=== PATIENT | female | born 1935 | race Caucasian/White ===

== ENCOUNTER 2016-07-30 09:38 | Inpatient (IN) | payer MEDICARE, OTHER ==
[~2016-07-30] VITALS: Ht 157.5 cm; Wt 58.0 kg
[~2016-07-30 09:38] MED LIST: ACTONEL PO; ACTONEL150 MG OR; ALEVE220 M1 PO; ASPIRIN81 MG PO; ATIVAN1 M1 OR; AVALIDE1 TA2 OR; CALCIUM 1200 OR; CALCIUM 6001 TAB PO; CLARITIN10 M1 PO; CLONIDINE0.1 MG PO; CLONIDINE0.2 MG OR; CLONIDINE0.2 MG PO; CRESTOR20 MG OR; CRESTOR20 MG PO; CYMBALTA60 MG OR; DICLOFENAC SODIUM3 % TOP; DIOVAN HCT320 MG/25 OR; FLUARIX QUADRIV1 IN1 IM; FLUTICASONE50 MCG; FLUZONE SPLT1 M1 IM; HYDROCO/APAP1 TA9 PO; LASIX 20 MG20 MG/TAB PO; LASIX20 MG OR; LORTAB 7.57.5 MG OR; LORTAB5 OR; MAREPA1000 MG OR; MECLIZINE25 MG PO; NIFEDIPINE60 MG PO; NITRO-DUR0.4 MG/HR TD; NORCO1 TA1 PO; NORVASC5 MG OR; PRILOSEC20 MG OR; PRILOSEC20 MG/CAP PO; PROTONIX40 M2 PO; ROXICODONE5 MG OR; SKELAXIN800 MG OR; SULFACET SOD10 % OP; TAMOXIFEN PO; TENIVAC1 ML IM; TENORMIN100 MG PO; TRAMADOL HCL50 MG PO; VITAMIN D-32000 UNIT OR; VITAMIN D-3400 UNIT PO; VITAMIN D2000 UNI2 PO; WOMEN'S ONE PO; [UNRECOGNIZED DRUG - OTHER] OP; catapres PO
[2016-07-30] MEDS ORDERED: REMERON15 MG PO (09:43)
[2016-07-30] MEDS ORDERED: TENORMIN50 MG PO (09:45)
[2016-07-30] MEDS ORDERED: BAYER ASPIRIN E81 MG PO (09:46)
[2016-07-30] MEDS ORDERED: B-121000 MC4 PO (09:47)
[2016-07-30] MEDS ORDERED: D31000 UNI1 PO (09:48)
[2016-07-30] MEDS ORDERED: FISH OIL1000 MG PO (09:49)
[2016-07-30] MEDS ORDERED: ULTRAM50 M1 PO (11:59)
[2016-07-30] MEDS ORDERED: FLEXERIL PO (11:59)
[2016-07-30 12:59] LABS: HEMOGLOBIN 11.7 g/dl (12.0-16.0); IMMATURE GRANULOCYTES 0.4 % (0.0-1.0); MEAN CELL VOLUME 95.5 fL CALC (80.0-100.0); MEAN CORPUSCULAR HGB CONC 32.5 g/L CALC (32.0-36.0); NEUT# 11.2 thou/uL (2.00-7.15); RED BLOOD COUNT 3.77 mill/uL (4.20-5.60); RED CELL DISTRI WIDTH 12.8 % (11.5-15.5)
[2016-07-30 13:27] LABS: ALKALINE PHOSPHATASE 71 u/l (38-126); ANION GAP 17 (6-22 (CALC)); BILIRUBIN, TOTAL 1.8 mg/dL (0.0-1.4); BUN 23 mg/dL (8-23); BUN/CREATININE RATIO 23 (12-20 (CALC)); CALCIUM 9.6 mg/dL (8.4-10.2); CARBON DIOXIDE 27 mmol/l (22-30); CHLORIDE 103 mmol/l (95-108); GFR 53 ML/MIN (>=60 (CALC)); GFR FOR AFR.AMER. > 60 ML/MIN (>=60 (CALC)); GLUCOSE 145 mg/dL (82-115); POTASSIUM 4.1 mmol/l (3.5-5.1); SGOT/AST 25 u/l (9-36); SGPT/ALT 21 u/l (11-66); SODIUM 142 mmol/l (137-146); TOTAL PROTEIN 7.5 g/dL (6.3-8.2)
[2016-07-30 13:34] LABS: MYOGLOBIN 71 ng/mL (0 - 62)
[2016-07-30 13:46] LABS: URINE BILIRUBIN - DIPSTICK NEGATIVE (NEGATIVE); URINE BLOOD DIPSTICK SMALL (NEGATIVE); URINE COLOR YELLOW; URINE GLUCOSE - DIPSTICK NEGATIVE (NEGATIVE); URINE KETONE NEGATIVE (NEGATIVE); URINE NITRITE - DIPSTICK NEGATIVE (Negative); URINE PROTEIN - DIPSTICK NEGATIVE (NEG-TRACE); URINE UROBILINOGEN - DIPSTICK 0.2 E.U./dL (0.2)
[2016-07-30 13:47] LABS: URINE BACTERIA FEW hpf; URINE CLARITY HAZY; URINE EPITHELIAL CELLS FEW EPI/hpf (0-FEW); URINE LEUK ESTERASE SMALL (NEGATIVE)
[2016-07-30 15:20] VITALS: BP 138/65
[2016-07-30 15:56] VITALS: BP 130/73
[2016-07-30 19:15] VITALS: BP 121/71
[2016-07-30 19:45] VITALS: BP 101/62
[2016-07-31 04:55] VITALS: BP 124/63
[2016-07-31 06:44] LABS: HEMATOCRIT 35.3 % (37.0-47.0); HEMOGLOBIN 11.4 g/dl (12.0-16.0); IMMATURE GRANULOCYTES 0.4 % (0.0-1.0); MEAN CELL VOLUME 96.4 fL CALC (80.0-100.0); MEAN CORPUSCULAR HGB 31.1 pG CALC (26.0-32.0); MEAN CORPUSCULAR HGB CONC 32.3 g/L CALC (32.0-36.0); NEUT# 5.6 thou/uL (2.00-7.15); RED BLOOD COUNT 3.66 mill/uL (4.20-5.60); RED CELL DISTRI WIDTH 12.9 % (11.5-15.5)
[2016-07-31 06:58] LABS: ANION GAP 14 (6-22 (CALC)); BUN 24 mg/dL (8-23); BUN/CREATININE RATIO 24 (12-20 (CALC)); CALCIUM 8.9 mg/dL (8.4-10.2); CARBON DIOXIDE 26 mmol/l (22-30); CHLORIDE 107 mmol/l (95-108); GFR 53 ML/MIN (>=60 (CALC)); GFR FOR AFR.AMER. > 60 ML/MIN (>=60 (CALC)); GLUCOSE 74 mg/dL (82-115); POTASSIUM 3.9 mmol/l (3.5-5.1); SODIUM 144 mmol/l (137-146)
[2016-07-31 07:40] VITALS: BP 121/81
[2016-07-31 07:42] VITALS: BP 32/61
[2016-07-31 11:29] VITALS: BP 144/63
[2016-07-31 15:31] VITALS: BP 131/68
[2016-07-31 19:42] VITALS: BP 132/61
[2016-08-01 00:40] VITALS: BP 120/56
[2016-08-01 04:05] VITALS: BP 138/76
[2016-08-01 09:03] VITALS: BP 133/71
[2016-08-01 11:29] VITALS: BP 144/62
[2016-08-01 15:30] VITALS: BP 121/61
[2016-08-01 19:40] VITALS: BP 144/77
[2016-08-02 00:06] VITALS: BP 127/78
[2016-08-02 04:30] VITALS: BP 140/62
[2016-08-02 09:07] VITALS: BP 137/80
[2016-08-02] MEDS ORDERED: SERTRALINE HCL50 MG PO (12:24)
[2016-08-02 13:13] VITALS: BP 144/89
[2016-08-02 16:00] VITALS: BP 138/79
== END 2016-08-02 17:03 | DRG 884 ==
LOC: ENPENDDIS → EDPENDDISTM → EDPENDDISDT → ED 09:38 → ED-I 13:50 → ED 14:29 → MS2 14:30
PROVIDERS: Emergency Medicine; ADMIT Internal Medicine; ATTEND Internal Medicine
PROC: 0T9B70Z Drainage of Bladder with Drainage Device, Via Natural or Artificial Opening (ICD-10-PCS; principal; 2016-07-30)
DX: F03.90 Unspecified dementia, unspecified severity, without behavioral disturbance, psychotic disturbance, mood disturbance, and anxiety (principal); R00.1 Bradycardia, unspecified; I10 Essential (primary) hypertension; M62.81 Muscle weakness (generalized); R26.89 Other abnormalities of gait and mobility; E78.5 Hyperlipidemia, unspecified; K21.9 Gastro-esophageal reflux disease without esophagitis; M25.461 Effusion, right knee; M17.11 Unilateral primary osteoarthritis, right knee; F32.9 Major depressive disorder, single episode, unspecified; T44.7X5A Adverse effect of beta-adrenoreceptor antagonists, initial encounter; Z85.3 Personal history of malignant neoplasm of breast; Z87.891 Personal history of nicotine dependence; Z91.81 History of falling

== ENCOUNTER 2016-10-06 09:45 | Emergency (ER) | payer MEDICARE, OTHER ==
[~2016-10-06] VITALS: Ht 160 cm; Wt 61.3 kg
[~2016-10-06 09:45] MED LIST changes: +B-121000 MC4 PO; +BAYER ASPIRIN E81 MG PO; +D31000 UNI1 PO; +FISH OIL1000 MG PO; +FLEXERIL PO; +KEFLEX500 M1 PO; +REMERON15 MG PO; +SERTRALINE HCL50 MG PO; +TENORMIN50 MG PO; +ULTRAM50 M1 PO
[2016-10-06 10:18] LABS: HEMATOCRIT 37.6 % (37.0-47.0); HEMOGLOBIN 12.2 g/dl (12.0-16.0); IMMATURE GRANULOCYTES 0.5 % (0.0-1.0); MEAN CELL VOLUME 91.3 fL CALC (80.0-100.0); MEAN CORPUSCULAR HGB 29.6 pG CALC (26.0-32.0); MEAN CORPUSCULAR HGB CONC 32.4 g/L CALC (32.0-36.0); NEUT# 10.27 thou/uL (2.00-7.15); RED BLOOD COUNT 4.12 mill/uL (4.20-5.60); RED CELL DISTRI WIDTH 13.3 % (11.5-15.5)
[2016-10-06] MEDS ORDERED: SERTRALINE50 MG PO (10:18)
[2016-10-06 10:32] LABS: ALBUMIN 3.9 g/dL (3.2-5.0); ALKALINE PHOSPHATASE 107 u/l (38-126); ANION GAP 17 (6-22 (CALC)); BILIRUBIN, TOTAL 1.6 mg/dL (0.0-1.4); BUN 13 mg/dL (8-23); BUN/CREATININE RATIO 19 (12-20 (CALC)); CALCIUM 9.4 mg/dL (8.4-10.2); CARBON DIOXIDE 24 mmol/l (22-30); CHLORIDE 104 mmol/l (95-108); CREATININE 0.7 mg/dL (0.5-1.0); GFR > 60 ML/MIN (>=60 (CALC)); GFR FOR AFR.AMER. > 60 ML/MIN (>=60 (CALC)); GLUCOSE 131 mg/dL (82-115); POTASSIUM 3.6 mmol/l (3.5-5.1); SGOT/AST 29 u/l (9-36); SGPT/ALT 24 u/l (11-66); SODIUM 141 mmol/l (137-146); TOTAL PROTEIN 7.1 g/dL (6.3-8.2)
[2016-10-06 10:45] LABS: MYOGLOBIN 260 ng/mL (0 - 62)
[2016-10-06 12:10] LABS: URINE BILIRUBIN - DIPSTICK NEGATIVE (NEGATIVE); URINE BLOOD DIPSTICK SMALL (NEGATIVE); URINE CLARITY CLEAR; URINE COLOR YELLOW; URINE GLUCOSE - DIPSTICK NEGATIVE (NEGATIVE); URINE KETONE NEGATIVE (NEGATIVE); URINE LEUK ESTERASE NEGATIVE (NEGATIVE); URINE NITRITE - DIPSTICK NEGATIVE (Negative); URINE PROTEIN - DIPSTICK NEGATIVE (NEG-TRACE); URINE UROBILINOGEN - DIPSTICK 0.2 E.U./dL (0.2)
[2016-10-06 12:39] LABS: URINE WBC 0-2 WBC/hpf (0-5)
[2016-10-06 12:40] LABS: URINE BACTERIA FEW hpf; URINE HYALINE CAST FEW lpf (NONE-RARE); URINE SQUAMOUS EPITHELIAL CELL FEW EPI/hpf (0-FEW)
[2016-10-06] MEDS ORDERED: EC-NAPROSYN500 MG PO (13:02)
[2016-10-06 14:02] VITALS: BP 173/78
== END 2016-10-06 14:02 | disposition home or self-care (01) ==
LOC: ED 09:45
PROVIDERS: Emergency Medicine
DX: S70.02XA Contusion of left hip, initial encounter (principal); W06.XXXA Fall from bed, initial encounter; Y93.89 Activity, other specified; Y92.003 Bedroom of unspecified non-institutional (private) residence as the place of occurrence of the external cause; I10 Essential (primary) hypertension; M79.7 Fibromyalgia; F03.90 Unspecified dementia, unspecified severity, without behavioral disturbance, psychotic disturbance, mood disturbance, and anxiety

== ENCOUNTER 2017-06-16 15:19 | Emergency (ER) | payer MEDICARE, OTHER ==
[~2017-06-16] VITALS: Ht 160 cm; Wt 68.0 kg
[~2017-06-16 15:19] MED LIST changes: +EC-NAPROSYN500 MG PO; +SERTRALINE50 MG PO
[2017-06-16] MEDS ORDERED: AMLODIPINE BESYL5 MG PO (15:44)
[2017-06-16] MEDS ORDERED: SINEMET 10/1001 TAB PO (15:44)
[2017-06-16] MEDS ORDERED: FUROSEMIDE20 MG PO (15:45)
[2017-06-16 17:33] LABS: HEMATOCRIT 43.4 % (37.0-47.0); IMMATURE GRANULOCYTES 0.6 % (0.0-1.0); MEAN CELL VOLUME 91.4 fL CALC (80.0-100.0); MEAN CORPUSCULAR HGB 29.9 pG CALC (26.0-32.0); MEAN CORPUSCULAR HGB CONC 32.7 g/L CALC (32.0-36.0); NEUT# 8.94 thou/uL (2.00-7.15); RED BLOOD COUNT 4.75 mill/uL (4.20-5.60); RED CELL DISTRI WIDTH 13.5 % (11.5-15.5)
[2017-06-16 17:34] LABS: URINE BILIRUBIN - DIPSTICK NEGATIVE (NEGATIVE); URINE BLOOD DIPSTICK LARGE (NEGATIVE); URINE COLOR YELLOW; URINE GLUCOSE - DIPSTICK NEGATIVE (NEGATIVE); URINE KETONE NEGATIVE (NEGATIVE); URINE NITRITE - DIPSTICK NEGATIVE (Negative); URINE PROTEIN - DIPSTICK TRACE mg/dL (NEG-TRACE); URINE SPECIFIC GRAVITY 1.015; URINE UROBILINOGEN - DIPSTICK 0.2 E.U./dL (0.2)
[2017-06-16 17:36] LABS: URINE CLARITY HAZY; URINE LEUK ESTERASE SMALL (NEGATIVE)
[2017-06-16 17:37] LABS: HEMOGLOBIN 14.2 g/dl (12.0-16.0)
[2017-06-16 17:49] LABS: URINE SQUAMOUS EPITHELIAL CELL FEW EPI/hpf (0-FEW)
[2017-06-16 17:59] LABS: ANION GAP 22 (6-22 (CALC)); BUN 15 mg/dL (8-23); BUN/CREATININE RATIO 17 (12-20 (CALC)); CARBON DIOXIDE 24 mmol/l (22-30); CHLORIDE 102 mmol/l (95-108); CREATININE 0.9 mg/dL (0.5-1.0); GFR 60 ML/MIN (>=60 (CALC)); GFR FOR AFR.AMER. > 60 ML/MIN (>=60 (CALC)); POTASSIUM 3.7 mmol/l (3.5-5.1); SODIUM 144 mmol/l (137-146)
[2017-06-16 19:20] VITALS: BP 151/84
== END 2017-06-16 19:20 ==
LOC: ED 15:19
PROVIDERS: Family Medicine
DX: S32.502A Unspecified fracture of left pubis, initial encounter for closed fracture (principal); S22.089A Unspecified fracture of T11-T12 vertebra, initial encounter for closed fracture; W07.XXXA Fall from chair, initial encounter

== ENCOUNTER 2017-12-03 11:13 | Emergency (ER) | payer MEDICARE, OTHER ==
[~2017-12-03] VITALS: Ht 160 cm; Wt 66.0 kg
[~2017-12-03 11:13] MED LIST changes: +AMLODIPINE BESYL5 MG PO; +FUROSEMIDE20 MG PO; +SINEMET 10/1001 TAB PO
[2017-12-03 11:48] LABS: HEMATOCRIT 40.6 % (37.0-47.0); HEMOGLOBIN 13.2 g/dl (12.0-16.0); IMMATURE GRANULOCYTES 0.4 % (0.0-5.0); MEAN CELL VOLUME 92.7 fL CALC (80.0-100.0); MEAN CORPUSCULAR HGB 30.1 pG CALC (26.0-32.0); MEAN CORPUSCULAR HGB CONC 32.5 g/L CALC (32.0-36.0); NEUT# 12.58 thou/uL (2.00-7.15); RED BLOOD COUNT 4.38 mill/uL (4.20-5.60); RED CELL DISTRI WIDTH 13.6 % (11.5-15.5)
[2017-12-03 11:54] LABS: ALBUMIN 3.7 g/dL (3.2-5.0); BILIRUBIN, TOTAL 1.2 mg/dL (0.0-1.4); CREATININE 1.2 mg/dL (0.5-1.0); POTASSIUM 3.2 mmol/l (3.5-5.1); TOTAL PROTEIN 6.9 g/dL (6.3-8.2)
[2017-12-03 12:58] LABS: URINE BLOOD DIPSTICK MODERATE (NEGATIVE); URINE COLOR YELLOW; URINE GLUCOSE - DIPSTICK NEGATIVE (NEGATIVE); URINE KETONE TRACE mg/dL (NEGATIVE); URINE NITRITE - DIPSTICK NEGATIVE (Negative); URINE PH 5.5 (4.5-8.0); URINE PROTEIN - DIPSTICK 100 mg/dL (NEG-TRACE); URINE SPECIFIC GRAVITY 1.025; URINE UROBILINOGEN - DIPSTICK 0.2 E.U./dL (0.2)
[2017-12-03 13:00] LABS: URINE BILIRUBIN - DIPSTICK SMALL (NEGATIVE); URINE CLARITY CLOUDY; URINE LEUK ESTERASE MODERATE (NEGATIVE)
[2017-12-03 13:04] LABS: URINE BACTERIA MODERATE hpf; URINE RBC TNTC RBC/hpf (0-5); URINE SQUAMOUS EPITHELIAL CELL FEW EPI/hpf (0-FEW); URINE WBC TNTC WBC/hpf (0-5)
[2017-12-03] MEDS ORDERED: BACTRIM DS1 TAB PO (14:04)
[2017-12-03] MEDS ORDERED: FLEXERIL PO (14:04)
[2017-12-03] MEDS ORDERED: ULTRAM50 M1 PO (14:04)
[2017-12-03 14:20] VITALS: BP 124/65
== END 2017-12-03 14:20 | disposition home or self-care (01) ==
LOC: ED 11:13
PROVIDERS: Emergency Medicine
PROC: 0T9B70Z Drainage of Bladder with Drainage Device, Via Natural or Artificial Opening (ICD-10-PCS; principal; 2017-12-03)
DX: S16.1XXA Strain of muscle, fascia and tendon at neck level, initial encounter (principal); S29.012A Strain of muscle and tendon of back wall of thorax, initial encounter; S20.212A Contusion of left front wall of thorax, initial encounter; N39.0 Urinary tract infection, site not specified; B96.20 Unspecified Escherichia coli [E. coli] as the cause of diseases classified elsewhere; W19.XXXA Unspecified fall, initial encounter; Y92.009 Unspecified place in unspecified non-institutional (private) residence as the place of occurrence of the external cause; R11.10 Vomiting, unspecified; I10 Essential (primary) hypertension; I48.91 Unspecified atrial fibrillation

== ENCOUNTER 2017-12-08 13:18 | Inpatient (IN) | payer MEDICARE, OTHER ==
[~2017-12-08] VITALS: Ht 157.5 cm; Wt 68.0 kg
[~2017-12-08 13:18] MED LIST changes: +BACTRIM DS1 TAB PO
[2017-12-08 14:49] LABS: HEMATOCRIT 40.5 % (37.0-47.0); HEMOGLOBIN 13.3 g/dl (12.0-16.0); IMMATURE GRANULOCYTES 0.4 % (0.0-5.0); MEAN CELL VOLUME 91.4 fL CALC (80.0-100.0); MEAN CORPUSCULAR HGB CONC 32.8 g/L CALC (32.0-36.0); NEUT# 6.62 thou/uL (2.00-7.15); RED BLOOD COUNT 4.43 mill/uL (4.20-5.60)
[2017-12-08 15:17] LABS: ALBUMIN 3.9 g/dL (3.2-5.0); BILIRUBIN, TOTAL 0.7 mg/dL (0.0-1.4); CREATININE 1.2 mg/dL (0.5-1.0); POTASSIUM 2.8 mmol/l (3.5-5.1); TOTAL PROTEIN 7.7 g/dL (6.3-8.2)
[2017-12-08 16:12] LABS: URINE BLOOD DIPSTICK SMALL (NEGATIVE); URINE COLOR YELLOW; URINE GLUCOSE - DIPSTICK NEGATIVE (NEGATIVE); URINE KETONE TRACE mg/dL (NEGATIVE); URINE NITRITE - DIPSTICK NEGATIVE (Negative); URINE PH 5.5 (4.5-8.0); URINE PROTEIN - DIPSTICK NEGATIVE (NEG-TRACE); URINE SPECIFIC GRAVITY 1.015; URINE UROBILINOGEN - DIPSTICK 0.2 E.U./dL (0.2)
[2017-12-08 16:13] LABS: URINE BILIRUBIN - DIPSTICK SMALL (NEGATIVE); URINE CLARITY TURBID; URINE LEUK ESTERASE LARGE (NEGATIVE)
[2017-12-08 16:21] LABS: URINE BACTERIA FEW hpf; URINE EPITHELIAL CELLS FEW EPI/hpf (0-FEW); URINE WBC TNTC WBC/hpf (0-5)
[2017-12-08 16:58] VITALS: BP 145/82
[2017-12-08 18:46] VITALS: BP 127/82
[2017-12-09 00:05] VITALS: BP 151/92
[2017-12-09 04:05] VITALS: BP 158/89
[2017-12-09 06:17] LABS: HEMATOCRIT 37.8 % (37.0-47.0); HEMOGLOBIN 12.5 g/dl (12.0-16.0); IMMATURE GRANULOCYTES 0.3 % (0.0-5.0); MEAN CORPUSCULAR HGB 30.4 pG CALC (26.0-32.0); MEAN CORPUSCULAR HGB CONC 33.1 g/L CALC (32.0-36.0); NEUT# 5.78 thou/uL (2.00-7.15); RED BLOOD COUNT 4.11 mill/uL (4.20-5.60)
[2017-12-09 06:31] LABS: ALBUMIN 3.4 g/dL (3.2-5.0); BILIRUBIN, TOTAL 0.5 mg/dL (0.0-1.4); CREATININE 1.1 mg/dL (0.5-1.0); POTASSIUM 3.2 mmol/l (3.5-5.1); TOTAL PROTEIN 6.6 g/dL (6.3-8.2)
[2017-12-09 06:36] LABS: MAGNESIUM 1.5 mg/dL (1.6-2.3)
[2017-12-09 08:45] VITALS: BP 141/77
[2017-12-09 11:45] VITALS: BP 153/92
[2017-12-09 16:10] VITALS: BP 142/85
[2017-12-09 20:00] VITALS: BP 135/76
[2017-12-10] VITALS (7 sets, daily range): BP systolic 128–180; BP diastolic 75–106
[2017-12-10 06:06] LABS: HEMATOCRIT 38.7 % (37.0-47.0); HEMOGLOBIN 12.5 g/dl (12.0-16.0); IMMATURE GRANULOCYTES 0.3 % (0.0-5.0); MEAN CELL VOLUME 92.8 fL CALC (80.0-100.0); MEAN CORPUSCULAR HGB CONC 32.3 g/L CALC (32.0-36.0); NEUT# 5.49 thou/uL (2.00-7.15); RED BLOOD COUNT 4.17 mill/uL (4.20-5.60); RED CELL DISTRI WIDTH 14.2 % (11.5-15.5)
[2017-12-10 06:26] LABS: ANION GAP 13 (6-22 (CALC)); BUN 17 mg/dL (8-23); BUN/CREATININE RATIO 18 (12-20 (CALC)); CARBON DIOXIDE 25 mmol/l (22-30); CHLORIDE 105 mmol/l (95-108); CREATININE 0.9 mg/dL (0.5-1.0); GFR 60 ML/MIN (>=60 (CALC)); GFR FOR AFR.AMER. > 60 ML/MIN (>=60 (CALC)); MAGNESIUM 1.6 mg/dL (1.6-2.3); SODIUM 139 mmol/l (137-146)
[2017-12-10 06:28] LABS: POTASSIUM 4.3 mmol/l (3.5-5.1)
[2017-12-10 12:57] LABS: C. DIFFICILE TOXIN A&B NEGATIVE (NEGATIVE)
[2017-12-11] VITALS (17 sets, daily range): BP systolic 91–176; BP diastolic 64–113
[2017-12-11 05:03] LABS: HEMATOCRIT 38.9 % (37.0-47.0); HEMOGLOBIN 12.4 g/dl (12.0-16.0); IMMATURE GRANULOCYTES 0.6 % (0.0-5.0); MEAN CELL VOLUME 94.4 fL CALC (80.0-100.0); MEAN CORPUSCULAR HGB 30.1 pG CALC (26.0-32.0); MEAN CORPUSCULAR HGB CONC 31.9 g/L CALC (32.0-36.0); NEUT# 12.09 thou/uL (2.00-7.15); RED BLOOD COUNT 4.12 mill/uL (4.20-5.60); RED CELL DISTRI WIDTH 14.4 % (11.5-15.5)
[2017-12-11 05:20] LABS: ANION GAP 13 (6-22 (CALC)); BUN 15 mg/dL (8-23); BUN/CREATININE RATIO 20 (12-20 (CALC)); CARBON DIOXIDE 24 mmol/l (22-30); CHLORIDE 106 mmol/l (95-108); CREATININE 0.8 mg/dL (0.5-1.0); GFR > 60 ML/MIN (>=60 (CALC)); GFR FOR AFR.AMER. > 60 ML/MIN (>=60 (CALC)); SODIUM 138 mmol/l (137-146)
[2017-12-11 05:21] LABS: POTASSIUM 5.4 mmol/l (3.5-5.1)
[2017-12-11 13:10] LABS: URINE BILIRUBIN - DIPSTICK NEGATIVE (NEGATIVE); URINE BLOOD DIPSTICK TRACE-LYSED (NEGATIVE); URINE COLOR YELLOW; URINE GLUCOSE - DIPSTICK NEGATIVE (NEGATIVE); URINE KETONE NEGATIVE (NEGATIVE); URINE NITRITE - DIPSTICK NEGATIVE (Negative); URINE PH 6.5 (4.5-8.0); URINE PROTEIN - DIPSTICK NEGATIVE (NEG-TRACE); URINE UROBILINOGEN - DIPSTICK 0.2 E.U./dL (0.2)
[2017-12-11 13:11] LABS: URINE LEUK ESTERASE MODERATE (NEGATIVE)
[2017-12-11 13:18] LABS: URINE CLARITY HAZY; URINE SQUAMOUS EPITHELIAL CELL FEW EPI/hpf (0-FEW); URINE WBC 20-50 WBC/hpf (0-5)
[2017-12-11 15:42] LABS: HEMATOCRIT 42.5 % (37.0-47.0); HEMOGLOBIN 13.3 g/dl (12.0-16.0); MEAN CELL VOLUME 95.3 fL CALC (80.0-100.0); MEAN CORPUSCULAR HGB 29.8 pG CALC (26.0-32.0); MEAN CORPUSCULAR HGB CONC 31.3 g/L CALC (32.0-36.0); RED BLOOD COUNT 4.46 mill/uL (4.20-5.60); RED CELL DISTRI WIDTH 14.5 % (11.5-15.5)
[2017-12-11 16:53] LABS: ANION GAP 14 (6-22 (CALC)); BUN 15 mg/dL (8-23); BUN/CREATININE RATIO 17 (12-20 (CALC)); CARBON DIOXIDE 25 mmol/l (22-30); CHLORIDE 106 mmol/l (95-108); CREATININE 0.9 mg/dL (0.5-1.0); GFR 60 ML/MIN (>=60 (CALC)); GFR FOR AFR.AMER. > 60 ML/MIN (>=60 (CALC)); MAGNESIUM 1.3 mg/dL (1.6-2.3); POTASSIUM 5.1 mmol/l (3.5-5.1); SODIUM 140 mmol/l (137-146)
[2017-12-12] VITALS (20 sets, daily range): BP systolic 99–163; BP diastolic 66–104
[2017-12-12 06:15] LABS: HEMATOCRIT 38.6 % (37.0-47.0); HEMOGLOBIN 11.9 g/dl (12.0-16.0); IMMATURE GRANULOCYTES 0.6 % (0.0-5.0); MEAN CORPUSCULAR HGB 30.5 pG CALC (26.0-32.0); MEAN CORPUSCULAR HGB CONC 30.8 g/L CALC (32.0-36.0); NEUT# 7.83 thou/uL (2.00-7.15); RED BLOOD COUNT 3.9 mill/uL (4.20-5.60); RED CELL DISTRI WIDTH 14.6 % (11.5-15.5)
[2017-12-12 06:24] LABS: ANION GAP 13 (6-22 (CALC)); BUN 11 mg/dL (8-23); BUN/CREATININE RATIO 16 (12-20 (CALC)); CARBON DIOXIDE 21 mmol/l (22-30); CHLORIDE 109 mmol/l (95-108); CREATININE 0.7 mg/dL (0.5-1.0); GFR > 60 ML/MIN (>=60 (CALC)); GFR FOR AFR.AMER. > 60 ML/MIN (>=60 (CALC)); POTASSIUM 4.7 mmol/l (3.5-5.1); SODIUM 138 mmol/l (137-146)
[2017-12-12 13:13] LABS: URINE BILIRUBIN - DIPSTICK NEGATIVE (NEGATIVE); URINE BLOOD DIPSTICK TRACE-INTACT (NEGATIVE); URINE COLOR YELLOW; URINE GLUCOSE - DIPSTICK NEGATIVE (NEGATIVE); URINE KETONE NEGATIVE (NEGATIVE); URINE NITRITE - DIPSTICK NEGATIVE (Negative); URINE PROTEIN - DIPSTICK NEGATIVE (NEG-TRACE); URINE SPECIFIC GRAVITY 1.025; URINE UROBILINOGEN - DIPSTICK 0.2 E.U./dL (0.2)
[2017-12-12 13:16] LABS: URINE CLARITY SL CLOUDY; URINE LEUK ESTERASE TRACE (Negative)
[2017-12-13] VITALS (17 sets, daily range): BP systolic 100–132; BP diastolic 58–80
[2017-12-13 05:41] LABS: HEMATOCRIT 37.5 % (37.0-47.0); HEMOGLOBIN 11.4 g/dl (12.0-16.0); IMMATURE GRANULOCYTES 0.6 % (0.0-5.0); MEAN CELL VOLUME 98.7 fL CALC (80.0-100.0); MEAN CORPUSCULAR HGB CONC 30.4 g/L CALC (32.0-36.0); NEUT# 6.52 thou/uL (2.00-7.15); RED BLOOD COUNT 3.8 mill/uL (4.20-5.60); RED CELL DISTRI WIDTH 14.5 % (11.5-15.5)
[2017-12-13 05:43] LABS: ALKALINE PHOSPHATASE 69 u/l (38-126); ANION GAP 10 (6-22 (CALC)); BILIRUBIN, TOTAL 0.4 mg/dL (0.0-1.4); BUN 8 mg/dL (8-23); BUN/CREATININE RATIO 12 (12-20 (CALC)); CARBON DIOXIDE 24 mmol/l (22-30); CHLORIDE 109 mmol/l (95-108); CREATININE 0.6 mg/dL (0.5-1.0); GFR > 60 ML/MIN (>=60 (CALC)); GFR FOR AFR.AMER. > 60 ML/MIN (>=60 (CALC)); MAGNESIUM 1.9 mg/dL (1.6-2.3); POTASSIUM 4.7 mmol/l (3.5-5.1); SGOT/AST 20 u/l (9-36); SODIUM 138 mmol/l (137-146)
[2017-12-13 05:47] LABS: ALBUMIN 2.4 g/dL (3.2-5.0)
[2017-12-14] VITALS (17 sets, daily range): BP systolic 95–172; BP diastolic 58–109
[2017-12-14 05:33] LABS: HEMATOCRIT 36.7 % (37.0-47.0); HEMOGLOBIN 11.4 g/dl (12.0-16.0); IMMATURE GRANULOCYTES 0.4 % (0.0-5.0); MEAN CELL VOLUME 98.7 fL CALC (80.0-100.0); MEAN CORPUSCULAR HGB 30.6 pG CALC (26.0-32.0); MEAN CORPUSCULAR HGB CONC 31.1 g/L CALC (32.0-36.0); NEUT# 4.83 thou/uL (2.00-7.15); RED BLOOD COUNT 3.72 mill/uL (4.20-5.60); RED CELL DISTRI WIDTH 14.5 % (11.5-15.5)
[2017-12-14 05:56] LABS: ALBUMIN 2.7 g/dL (3.2-5.0); ALKALINE PHOSPHATASE 82 u/l (38-126); ANION GAP 12 (6-22 (CALC)); BILIRUBIN, TOTAL 0.3 mg/dL (0.0-1.4); BUN 6 mg/dL (8-23); BUN/CREATININE RATIO 10 (12-20 (CALC)); CARBON DIOXIDE 24 mmol/l (22-30); CHLORIDE 107 mmol/l (95-108); CREATININE 0.6 mg/dL (0.5-1.0); GFR > 60 ML/MIN (>=60 (CALC)); GFR FOR AFR.AMER. > 60 ML/MIN (>=60 (CALC)); MAGNESIUM 1.8 mg/dL (1.6-2.3); POTASSIUM 4.4 mmol/l (3.5-5.1); SGOT/AST 17 u/l (9-36); SODIUM 139 mmol/l (137-146); TOTAL PROTEIN 5.5 g/dL (6.3-8.2)
[2017-12-15] VITALS (12 sets, daily range): BP systolic 125–180; BP diastolic 71–107
[2017-12-15 04:55] LABS: HEMATOCRIT 36.1 % (37.0-47.0); HEMOGLOBIN 11.1 g/dl (12.0-16.0); IMMATURE GRANULOCYTES 0.6 % (0.0-5.0); MEAN CELL VOLUME 98.4 fL CALC (80.0-100.0); MEAN CORPUSCULAR HGB 30.2 pG CALC (26.0-32.0); MEAN CORPUSCULAR HGB CONC 30.7 g/L CALC (32.0-36.0); NEUT# 5.6 thou/uL (2.00-7.15); RED BLOOD COUNT 3.67 mill/uL (4.20-5.60); RED CELL DISTRI WIDTH 14.1 % (11.5-15.5)
[2017-12-15 05:03] LABS: ALBUMIN 2.9 g/dL (3.2-5.0); ALKALINE PHOSPHATASE 80 u/l (38-126); ANION GAP 11 (6-22 (CALC)); BILIRUBIN, TOTAL 0.4 mg/dL (0.0-1.4); BUN 6 mg/dL (8-23); BUN/CREATININE RATIO 9 (12-20 (CALC)); CARBON DIOXIDE 26 mmol/l (22-30); CHLORIDE 107 mmol/l (95-108); CREATININE 0.6 mg/dL (0.5-1.0); GFR > 60 ML/MIN (>=60 (CALC)); GFR FOR AFR.AMER. > 60 ML/MIN (>=60 (CALC)); MAGNESIUM 1.6 mg/dL (1.6-2.3); POTASSIUM 5.1 mmol/l (3.5-5.1); SGOT/AST 18 u/l (9-36); SODIUM 139 mmol/l (137-146); TOTAL PROTEIN 5.8 g/dL (6.3-8.2)
[2017-12-16] VITALS (11 sets, daily range): BP systolic 103–140; BP diastolic 56–78
[2017-12-17 00:16] VITALS: BP 120/76
[2017-12-17 05:29] VITALS: BP 139/80
[2017-12-17 07:30] VITALS: BP 141/77
[2017-12-17 09:20] VITALS: BP 137/72
[2017-12-17] MEDS ORDERED: AMLODIPINE BESYL5 MG PO (10:07)
[2017-12-17] MEDS ORDERED: ASPIRIN CHEWABL81 MG PO (10:08)
[2017-12-17 11:50] VITALS: BP 140/73
== END 2017-12-17 11:58 | DRG 689 ==
LOC: ED 13:18 → ED-I 14:05 → ED 15:56 → MS2 15:57 → ICU 12-11 15:22
PROVIDERS: Emergency Medicine; Internal Medicine; Internal Medicine Nephrology; Nurse Practitioner Family; ADMIT Internal Medicine; ATTEND Internal Medicine
PROC: 3E0234Z Introduction of Serum, Toxoid and Vaccine into Muscle, Percutaneous Approach (ICD-10-PCS; principal; 2017-12-10)
PROC: 0T9B70Z Drainage of Bladder with Drainage Device, Via Natural or Artificial Opening (ICD-10-PCS; 2017-12-11)
DX: N39.0 Urinary tract infection, site not specified (principal); G93.41 Metabolic encephalopathy; N17.9 Acute kidney failure, unspecified; E87.3 Alkalosis; F03.91 Unspecified dementia, unspecified severity, with behavioral disturbance; I47.1 Supraventricular tachycardia; I10 Essential (primary) hypertension; M25.562 Pain in left knee; E87.6 Hypokalemia; R62.7 Adult failure to thrive; E86.0 Dehydration; I48.91 Unspecified atrial fibrillation; R29.6 Repeated falls; K21.9 Gastro-esophageal reflux disease without esophagitis; E55.9 Vitamin D deficiency, unspecified; N20.0 Calculus of kidney; E83.42 Hypomagnesemia; F32.9 Major depressive disorder, single episode, unspecified; M19.90 Unspecified osteoarthritis, unspecified site; T50.2X5A Adverse effect of carbonic-anhydrase inhibitors, benzothiadiazides and other diuretics, initial encounter; S32.592D Other specified fracture of left pubis, subsequent encounter for fracture with routine healing; W07.XXXD Fall from chair, subsequent encounter; Z23 Encounter for immunization; Z87.891 Personal history of nicotine dependence; Z85.3 Personal history of malignant neoplasm of breast; Z66 Do not resuscitate
CPT/HCPCS: J1650

== ENCOUNTER 2018-05-11 11:56 | Emergency (ER) | payer MEDICARE, OTHER ==
[~2018-05-11 11:56] MED LIST changes: +ASPIRIN CHEWABL81 MG PO
== END 2018-05-11 11:58 | disposition expired ==
LOC: ED 11:56
PROC: 5A12012 Performance of Cardiac Output, Single, Manual (ICD-10-PCS; principal; 2018-05-11)
DX: I46.9 Cardiac arrest, cause unspecified (principal); I10 Essential (primary) hypertension; F03.90 Unspecified dementia, unspecified severity, without behavioral disturbance, psychotic disturbance, mood disturbance, and anxiety; I48.91 Unspecified atrial fibrillation